=== PATIENT | female | born 1965 ===

== ENCOUNTER 2019-10-19 12:21 | Outpatient (CLI) | payer OTHER ==
[~2019-10-19 12:21] MED LIST: PROTONIX PO
== END 2019-10-19 12:23 | disposition home or self-care (01) ==
LOC: TOM 12:21
PROVIDERS: ATTEND Orthopaedic Surgery Hand Surgery
DX: O99.335 Smoking (tobacco) complicating the puerperium (principal)

== ENCOUNTER 2019-10-23 06:39 | Day surgery (SDC) | payer OTHER | END 2019-10-23 15:50 | disposition home or self-care (01) | LOC: CIR.AMB 06:39 → ADM 08:15 → CIR.AMB 15:50 | PROVIDERS: ATTEND Orthopaedic Surgery Hand Surgery | DX: M65.332 Trigger finger, left middle finger (principal); M65.312 Trigger thumb, left thumb ==